=== PATIENT | male | born 1985 | race Two or more races ===

== ENCOUNTER 2023-02-16 12:49 | Emergency (ER) | payer MEDICAID ==
[~2023-02-16] VITALS: Ht 165.1 cm; Wt 74.8 kg
--- NOTE | 2023-02-16 13:45 | NUR ---
C/O COUGH CONGESTION CHILLS BODYACHES X 5 DAYS. AND FEVER
--- NOTE | 2023-02-16 13:47 | NUR ---
DR WATT AT BEDSIDE FOR EVAL. PUT ON BED, PLACED IN GOWN, PLACED ON MONITOR.
[2023-02-16] MEDS ORDERED: GUAI-671 PO (13:51)
[2023-02-16 14:36] VITALS: BP 120/80
== END 2023-02-16 14:37 | disposition home or self-care (01) ==
LOC: ER 12:53
DX: J20.9 Acute bronchitis, unspecified (principal); Z60.2 Problems related to living alone